=== PATIENT | male | born 1945 | race Two or more races ===

== ENCOUNTER 2022-04-09 13:42 | Emergency (ER) | payer OTHER ==
[~2022-04-09] VITALS: Ht 172.7 cm; Wt 88.5 kg
[2022-04-09] MEDS ORDERED: EPINEPHrine HCL 1 MG/10 ML SYRG IV ONE (13:43)
[2022-04-09] MEDS ORDERED: SODIUM BICARBONATE 8.4 % INJ 50ML VIAL IV ONE (13:43)
[2022-04-09] MEDS ORDERED: ATROPINE SULF 1 MG/10ml SYR IV ONE ×2 (13:43→15:15)
[2022-04-09] MEDS ORDERED: CALCIUM CHLOR(10%) 100MG/ML 10ML SYRINGE IV ONE (13:43)
[2022-04-09 14:19] LABS: Basophils # (auto) 0.1 10 ^3/uL (0-0.2); Basophils % (auto) 0.9 % (0.0-2.0); Eosinophils # (auto) 0.2 10 ^3/uL (0-0.8); Eosinophils % (auto) 1.5 % (0.0-7.0); Lymphocytes # (auto) 3.2 10 ^3/uL (0.4-5.4); Lymphocytes % (auto) 23.9 % (10.0-50.0); Mean Corpuscular Hemoglobin 28.1 pg (28.0-32.0); Mean Corpuscular Hgb Conc. 31.8 g/dL (32.0-36.0); Mean Corpuscular Volume 88.5 fL (80.0-100.0); Monocytes # (auto) 0.9 10 ^3/uL (0-1.3); Monocytes % (auto) 6.6 % (0.0-12.0); Neutrophils # (auto) 8.9 10 ^3/uL (1.6-8.6); Neutrophils % (auto) 67.1 % (37.0-80.0); Nucleated Red Blood Cells % 0.1 %; Red Blood Cells 4.58 10^6/uL (4.5-5.90); Red Cell Distribution Width 16.4 % (11.8-14.3); White Blood Cell 13.3 10^3/uL (4.4-10.8)
[2022-04-09] MEDS ORDERED: ETOMIDATE (2MG/ML) 20ML VIAL IV ONE ×4 (14:28→15:15)
[2022-04-09] MEDS ORDERED: PROPOFOL 100 ML IV SCH (14:30)
[2022-04-09] MEDS ORDERED: SUCCINYLCHOLINE CHLORIDE 20 MG/ML 10ML VIAL IV ONE (14:30)
[2022-04-09] MEDS ORDERED: FUROSEMIDE 20 MG/2 ML VIAL ONE (14:32)
[2022-04-09 14:38] LABS: Hematocrit 40.5 % (41.0-53.0); Hemoglobin 12.9 g/dL (13.5-17.5)
[2022-04-09 14:39] LABS: Albumin 3.2 g/dL (3.4-5.0); Calcium 9.1 mg/dL (8.5-10.1); Potassium 4.4 mmol/L (3.5-5.1)
[2022-04-09 14:42] LABS: BUN/Creatinine Ratio 15.7; Bilirubin, Total 0.4 mg/dL (0.2-1.0)
[2022-04-09] MEDS ORDERED: FUROSEMIDE 20 MG/2 ML VIAL IV ONE (14:45)
[2022-04-09] MEDS ORDERED: ONDANSETRON HCL 4 MG/2 ML VIAL ONE (14:53)
[2022-04-09] MEDS ORDERED: DOPamine 1600MCG/ML D5W 250 ML IV ONE (15:00)
[2022-04-09] MEDS ORDERED: DOPamine 1600MCG/ML D5W 250 ML IV SCH (15:00)
[2022-04-09] MEDS ORDERED: ONDANSETRON HCL 4 MG/2 ML VIAL IV ONE (15:00)
[2022-04-09 15:03] LABS: Partial Thromboplastin Time 25.9 sec (23.6-33.0)
[2022-04-09 15:09] VITALS: BP 83/53
[2022-04-09] MEDS ORDERED: ROCURONIUM 10MG/ML 10ML VIAL IV ONE ×2 (15:09→15:15)
[2022-04-09] MEDS ORDERED: MIDAZOLAM DRIP 50 mg/50mL 50 ML IV ONE (15:14)
[2022-04-09] MEDS ORDERED: MIDAZOLAM HCL 2MG/2ML 2ml VIAL (1mg/ml) IV ONE (15:15)
[2022-04-09] MEDS ORDERED: MIDAZOLAM HCL 5 MG/ML-1ML VIAL ONE (15:15)
[2022-04-09] MEDS ORDERED: MIDAZOLAM DRIP 50 mg/50mL 50 ML IV SCH (15:15)
[2022-04-09] MEDS ORDERED: SODIUM CHL 0.9% 0 ML ONE (15:20)
[2022-04-09] MEDS ORDERED: ANGIOMAX 250 MG VIAL IV ONE (15:20)
[2022-04-09] MEDS ORDERED: LIDOCAINE 2%HCL (LOCAL ANESTH.) INJ 10ml MDV ONE (15:21)
== END 2022-04-09 15:36 ==
LOC: EDBD 13:42 → ER 13:42 → EDSEX 13:42 → ER 15:36
DX: I21.3 ST elevation (STEMI) myocardial infarction of unspecified site (principal); I46.9 Cardiac arrest, cause unspecified; Z20.822 Contact with and (suspected) exposure to COVID-19
CPT/HCPCS: 31500; 36415; 70450; 71045; 80053; 82962; 84484; 85025; 85610; 85730; 86850; 86900; 86901; 87426; 92950; 93005; 96374; 96375; 99291; J0171; J1265; J1644; J1940; J2250; J2405; J2001